=== PATIENT | female | born 1980 | race African-American/Black ===

== ENCOUNTER 2017-08-02 12:36 | Emergency (ER) | payer SELFPAY ==
[~2017-08-02] VITALS: Ht 167.6 cm; Wt 115.0 kg
[2017-08-02 12:41] VITALS: BP 143/103
[2017-08-02] MEDS ORDERED: VITAMINS (12:41)
== END 2017-08-02 18:10 | disposition left against medical advice (07) ==
LOC: ER 13:55
DX: N94.9 Unspecified condition associated with female genital organs and menstrual cycle (principal); Z53.21 Procedure and treatment not carried out due to patient leaving prior to being seen by health care provider

== ENCOUNTER 2018-02-14 17:15 | Emergency (ER) | payer MEDICAID ==
[~2018-02-14] VITALS: Ht 170.2 cm; Wt 98.0 kg
[~2018-02-14 17:15] MED LIST: VITAMINS
[2018-02-14 17:23] VITALS: BP 160/96
[2018-02-14 18:04] LABS: BASOPHILS % 1.6 % (0.0-2.0); EOSINOPHILS % 0.9 % (0.0-5.0); HEMATOCRIT. 34.5 % (36.0-48.0); HEMOGLOBIN. 10.9 g/dL (12.0-16.0); LYMPHOCYTES % 29.9 % (20.0-50.0); MEAN CORPUSCULAR HEMOGLOBIN 20.4 pg (28.0-32.0); MEAN CORPUSCULAR VOLUME 64.4 fL (81.0-99.0); MEAN PLATELET VOLUME 8.5 fl (7.4-10.4); MONOCYTES % 8.8 % (2.0-8.0); NEUTROPHILS % 58.8 % (40.0-76.0); PLATELET 281 x1000/uL (130-400); RED BLOOD CELL COUNT 5.36 mill/uL (4.2-5.4); RED CELL DISTRIBUTION WIDTH 17.5 % (11.6-14.6)
[2018-02-14 18:10] LABS: CHLORIDE 107 mEq/L (98-107); PROTHROMBIN TIME 10.8 sec (9.4-11.6)
[2018-02-14 18:13] LABS: HCG SCREEN NEGATIVE
[2018-02-14 19:05] LABS: PLATELET ESTIMATE NORMAL
== END 2018-02-14 20:15 | disposition left against medical advice (07) ==
LOC: ER 17:43
DX: R10.30 Lower abdominal pain, unspecified (principal); N93.8 Other specified abnormal uterine and vaginal bleeding
CPT/HCPCS: 36415; 80053; 83690; 84703; 85025; 85610; 99284

== ENCOUNTER 2021-01-03 18:49 | Emergency (ER) | payer MEDICAID ==
[~2021-01-03] VITALS: Ht 167.6 cm; Wt 114.0 kg
[2021-01-03 19:38] VITALS: BP 166/84
[2021-01-03] MEDS ORDERED: DEXAMETHASONE 4MG TABLET PO ONE (19:45)
== END 2021-01-03 20:10 | disposition home or self-care (01) ==
LOC: ER 18:49
DX: J06.9 Acute upper respiratory infection, unspecified (principal); Z93.0 Tracheostomy status
CPT/HCPCS: 99283; J8540

== ENCOUNTER 2022-04-18 16:55 | Emergency (ER) | payer MEDICARE, MEDICAID ==
[~2022-04-18] VITALS: Ht 167.6 cm; Wt 114.0 kg
[2022-04-18] MEDS ORDERED: VISCOUS LIDOCAINE 2% 15 ML UDC MM STA (21:04)
[2022-04-18] MEDS ORDERED: PENI500T MT (21:07)
[2022-04-18] MEDS ORDERED: TOPUD MT (21:07)
[2022-04-18] MEDS ORDERED: XLV MT (21:07)
[2022-04-18] MEDS ORDERED: ACETAMINOPHEN 325MG TABLET PO ONE (21:15)
[2022-04-18] MEDS ORDERED: DEXAMETHASONE 4MG TABLET PO ONE (21:15)
[2022-04-18 21:29] VITALS: BP 138/88
== END 2022-04-18 20:22 | disposition home or self-care (01) ==
LOC: ER 16:55
DX: H66.91 Otitis media, unspecified, right ear (principal); F17.290 Nicotine dependence, other tobacco product, uncomplicated
CPT/HCPCS: 99283; 99406; J8540

== ENCOUNTER 2022-06-29 23:18 | Emergency (ER) | payer MEDICAID, MEDICARE ==
[~2022-06-29] VITALS: Ht 170.2 cm; Wt 114.0 kg
[~2022-06-29 23:18] MED LIST changes: +PENI500T MT; +TOPUD MT; +XLV MT
[2022-06-29 23:22] VITALS: BP 173/94
[2022-06-29] MEDS ORDERED: PENI500T MT (23:51)
== END 2022-06-30 01:58 | disposition home or self-care (01) ==
LOC: ER 23:18
DX: T16.1XXA Foreign body in right ear, initial encounter (principal); K02.9 Dental caries, unspecified; F17.210 Nicotine dependence, cigarettes, uncomplicated; Z93.0 Tracheostomy status; X58.XXXA Exposure to other specified factors, initial encounter; Y93.89 Activity, other specified; Y92.018 Other place in single-family (private) house as the place of occurrence of the external cause
CPT/HCPCS: 99283